=== PATIENT | female | born 1985 | race Caucasian/White ===

== ENCOUNTER 2018-10-10 10:04 | Emergency (ER) | payer SELFPAY ==
[2018-10-10] MEDS ORDERED: IBUPROFEN 400 MG TABLET PO ONE (11:02)
[2018-10-10 11:07] LABS: BASO % 0.7 % (0-6); EOS % 2.2 % (0-6); GRAN % 54.7 % (47-80); HEMATOCRIT 42.4 % (35.0-47.0); LYMPH % 34.5 % (16-45); MEAN CELL VOLUME 98.6 fl (81-97); MEAN CORPUSCULAR HEMOGLOBIN 32.6 pg (27-33); MONO % 7.9 % (0-9); PLATELET COUNT 261 K/uL (130-400); RED CELL DISTRIBUTION WIDTH 13.4 % (11.5-14.5); WHITE BLOOD COUNT W/O DIFF 8.5 K/uL (4.2-12.2)
--- NOTE | 2018-10-10 11:07 | Emergency Department Record ---
History of Present Illness - General Chief Complaint: Mental health evaluation Stated Complaint: MENTAL EVAL Time Seen by Provider: 10/10/18 10:16 Source: Patient Mode of Arrival: Ambulatory Limitations: No limitations - History of Present Illness Initial Comments: The patient has been depressed for about a month and today the stressors have worsened. She texted a friend telling him that she was going to hurt herself and did not want to live anymore. Presently the patient still feels depressed and is thinking of hurting herself but has no plan. She denies any overdose of pills or drugs but was drinking heavily recently. She also missed work today and believes she will lose her job. The patient was brought to the ER on a police Tiffanie. MD Complaint: Suicidal ideation Onset/Timin -: Month(s) Associated Psychiatric Symptoms: Suicidal ideation History of same: Yes Quality: Constant Improves With: None Worsens With: None Context: Not taking psychiatric medications, Significant life stressor Associated Symptoms: Denies other symptoms Treatments Prior to Arrival: None - Tyler Coma Scale Eye Response: (4) Open spontaneously Motor Response: (6) Obeys commands Verbal Response: (5) Oriented Tyler Total: 15 - Related Data Home Medications Medication Instructions Recorded Confirmed Last Taken No Home Med [NO HOME MEDS] 10/10/18 10/10/18 Unknown Allergies Allergy/AdvReac Type Severity Reaction Status Date / Time No Known Drug Allergies Allergy Verified 10/10/18 10:11 Review of Systems Constitutional: Denies: Chills, Fever Eyes: Denies: Eye discharge ENT: Denies: Congestion Respiratory: Denies: Cough, Dyspnea Past Medical History - SOCIAL HISTORY Smoking Status: Current every day smoker Alcohol Use: Heavy Drug Use: None - RESPIRATORY Hx Respiratory Disorders: No - CARDIOVASCULAR Hx Cardio Disorders: No - NEURO Hx Neuro Disorders: No - GI Hx GI Disorders: No - ENDOCRINE Hx Endocrine Disorders: No - MUSCULOSKELETAL Hx Musculoskeletal Disorders: No - PSYCH Hx Psych Problems: Yes Hx Anxiety: Yes Hx Depression: Yes - HEMATOLOGY/ONCOLOGY Hx Hematology/Oncology Disorders: No Family Medical History Any Significant Family History?: No Physical Exam - General General Appearance: Alert, Oriented x3, Cooperative, No acute distress - Head Head exam: Atraumatic, Normocephalic, Normal inspection - Eye Eye exam: Normal appearance, PERRL, EOMI - ENT Throat exam: Normal inspection. negative: Tonsillar erythema, Tonsillar exudate - Neck Neck exam: Normal inspection, Full ROM. negative: Tenderness - Respiratory Respiratory exam: Normal lung sounds bilaterally. negative: Respiratory distress - Cardiovascular Cardiovascular Exam: Regular rate, Normal rhythm, Normal heart sounds - GI/Abdominal GI/Abdominal exam: Soft, Normal bowel sounds. negative: Tenderness - Extremities Extremities exam: Normal inspection, Full ROM, Normal capillary refill. negative: Tenderness - Back Back exam: Reports: Normal inspection - Neurological Neurological exam: Alert, Normal gait, Oriented X3. negative: Abnormal gait, Altered, Motor sensory deficit - Psychiatric Psychiatric exam: Depressed. negative: Anxious Course Vital Signs 10/10/18 10:50 Temperature 97.9 F Pulse Rate [ 91 H Pulse Ox Probe] Respiratory 20 Rate Blood Pressure 142/99 [Left Arm] Pulse Ox 99 - Reevaluation(s) Reevaluation #1: The patient is doing very well at this time. She denies any pain or discomfort but still feels depressed. I did discuss the case with a social media developer at [facility] and they did accept the patient after review of her lab work and Tiffanie/Cert. 10/10/18 11:46 Reevaluation #2: The patient is doing very well at this time. She has been accepted at [facility] and we are waiting on the call to send her there. 10/10/18 13:11 Medical Decision Making - Data Complexity MDM Data: Labs Ordered and/or Reviewed - Lab Data Result diagrams: 10/10/18 11:00 10/10/18 11:00 Disposition Disposition: Transfer Clinical Impression: Suicidal ideation Disposition: Acute Care Hospital Transfer Transfer To: [facility] Reason For Transfer: Suicidal ideation. Accepting Physician: Jarrell Time Discussed w/Accepting Physician: 13:12 Condition: (2) Stable Forms: Patient Portal Access Time of Disposition: 13:12 Quality - Quality Measures Quality Measures: N/A - Blood Pressure Screening View Details: Yes Does Patient Have Any of the Following: No Blood Pressure Classification: Normal BP Reading Systolic Measurement: 118 Diastolic Measurement: 72 Screening for High Blood Pressure: < Normal BP, F/U Not Required > [G8783]
[2018-10-10 11:10] LABS: AMPHETAMINE SCREEN URINE NOT DETECTED; BARBITURATE SCREEN URINE NOT DETECTED; BENZODIAZEPINE SCREEN URINE NOT DETECTED; COCAINE SCREEN URINE NOT DETECTED; METHADONE SCREEN URINE NOT DETECTED; METHAMPHETAMINE SCREEN NOT DETECTED; OPIATE SCREEN URINE NOT DETECTED; OXYCODONE SCREEN URINE NOT DETECTED; PHENCYCLIDINE SCREEN URINE NOT DETECTED; PROPOXYPHENE SCREEN URINE NOT DETECTED; THC SCREEN URINE NOT DETECTED; TRICYCLIC ANTIDEPRESSANT SCRN NOT DETECTED
[2018-10-10 11:20] LABS: BILIRUBIN,TOTAL < 0.20 mg/dL (0.2-1.0); BLOOD UREA NITROGEN 11 mg/dL (6-20); CREATININE 0.5 mg/dL (0.5-0.9); EST GLOMERULAR FILTRATION RATE > 60 mL/min
[2018-10-10 11:21] LABS: TOTAL PROTEIN 7.4 g/dL (6.6-8.7)
[2018-10-10 11:22] LABS: ALCOHOL 0.164 g/dL (0-0.010)
[2018-10-10 11:23] LABS: GLUCOSE,RANDOM 96 mg/dL (74-109)
[2018-10-10 11:25] LABS: ALT/SGPT 19 U/L (<33); AST/SGOT 21 U/L (10.0-35.0)
[2018-10-10 11:26] LABS: ACETAMINOPHEN < 5.0 ug/mL (10.0-30.0); ALB/GLOB RATIO 1.6 (1.1-1.8); ALBUMIN 4.6 g/dL (4.0-5.0); ALKALINE PHOSPHATASE 106 U/L (45-87); SALICYLATE < 0.3 mg/dL (2.8-20)
== END 2018-10-10 14:30 | disposition short-term general hospital (02) ==
LOC: ER 10:04
DX: R45.851 Suicidal ideations (principal); F32.9 Major depressive disorder, single episode, unspecified; F17.210 Nicotine dependence, cigarettes, uncomplicated
CPT/HCPCS: 99285 ×2; 85025; 80053; 81025; 80305; G0480 ×3; 80320; 80329